=== PATIENT | female | born 1980 | race Caucasian/White ===

== ENCOUNTER 2023-01-17 07:23 | Emergency (ER) | payer OTHER, SELFPAY ==
--- NOTE | ~2023-01-17 | CT_ITS ---
EXAMINATION: CT abdomen pelvis w con DATE: 01/17/2023 08:43 INDICATION: Abdominal pain TECHNIQUE: Computed tomography (CT) of the abdomen and pelvis was performed with 100 mL Omnipaque-350 intravenous contrast. Automated exposure control and iterative reconstruction technique were employe d. The dose-length product was 1371.53 mGy-cm. COMPARISON: 04/22/2006 FINDINGS: Lung bases are clear. Heart size is normal. No pericardial or pleural effusion. Liver, gallbladder, s pleen, pancreas, bilateral adrenal glands are normal. 2.5 cm left renal cyst. 2 mm nonobstructing sto ne at a lower pole calyx of the right kidney. No ureteral stones or hydronephrosis. Small bowel and a ppendix are normal. Moderate diverticulosis along the descending colon with bowel wall thickening and prominent inflammatory stranding centered around a diverticulum at the junction of the descending an d transverse colon consistent with diverticulitis. No abscess or free intraperitoneal gas. Minimal ei ther reactive or physiologic free fluid in the deep pelvis. The uterus is not identified and has like ly been surgically resected. Bladder and right ovary are normal. 1.7 cm peripherally enhancing left o varian corpus luteum cyst. No pathologically enlarged abdominal or pelvic lymphadenopathy. Bones are unremarkable. IMPRESSION: 1. Radiographically uncomplicated diverticulitis at the junction of the descending and sigmoid colon. 2. 2 mm nonobstructing right renal stone. Reviewed, dictated and finalized at location A. RING PADS SUPERVISOR IMPRESSION: 1. Radiographically uncomplicated diverticulitis at the junction of the descend ing and sigmoid colon. 2. 2 mm nonobstructing right renal stone.
[2023-01-17 07:28] VITALS: BP 158/87; PULSE 94; RESP 16; TEMP 36.7; O2SAT 99
--- NOTE | 2023-01-17 07:34 | ED.ABDPAIN ---
HPI - Abdominal Pain General Chief Complaint: Abdominal Pain Stated Complaint: severe abdominal pain Time Seen by Provider: 01/17/23 07:31 Source: patient and family Limitations: no limitations History of Present Illness HPI narrative: Patient is 42 years old white female came to the emergency room by private car with her complaining of right upper and right lower quadrant pain started yesterday, dull aching, gets sharper with movement, better if she remains a still associated with nausea. She denies any fever, chills, vomiting, diarrhea, constipation, urinary symptoms, vaginal bleeding or discharge. History of hysterectomy and bladder lift and anxiety. Patient does not smoke, drinks occasionally uses marijuana occasionally and a history of kidney stone. Related Data Allergies Allergy/AdvReac Type Severity Reaction Status Date / Time No Known Allergies Allergy Verified 01/17/23 07:40 Review of Systems Review of Systems: All systems reviewed & are unremarkable except as noted in HPI and below PMFSH Past Medical History Medical History Anxiety Chronic low back pain with right-sided sciatica Edema, peripheral Elevated liver enzymes (03/09/22) ALT elevated at 43 with AST 24 on 03/09/2022. Encounter for wellness examination in adult Family history of premature coronary artery disease Fever Folliculitis Kidney stones kidney stone removal Morbid obesity with BMI of 40.0-44.9, adult Skin tag Surgical History Surgical History H/O LEEP H/O: hysterectomy (~2018) 08/25/19 RA TLH w/ rt ovarian cystectomy--menometrorrhagia, dysmenorrhea, urinary incontinence, rt ovarian cyst History of hysteroscopy 09/09/15 hscope d&c History of tonsillectomy Hx of ovarian cystectomy 09/09/15 Family History Family History Grandparent Diabetes mellitus, Onset Age: 81 maternal grandmother Cerebrovascular accident, Onset Age: 81 Family history of malignant neoplasm of breast in first degree relative Breast cancer maternal grandmother Mother Patient's mother is in good health Father Family history of cardiovascular disease, Onset Age: 58 Hypertension Diabetes mellitus Social History Social History Smoking status: Never smoker Alcohol intake: current Substance use: current Substance use type: marijuana Lack of Transportation: No Lack of Food: Never True Current Housing: I Have Housing Concerned About Future Housing: No Difficulty Paying Gas/Electric Bills: No Difficulty Paying for Meds: No Currently Unemployed: No Education: Bachelor's Degree Difficulty w/ Childcare or Family Care: No Exam Narrative: General appearance: Well-developed, well-nourished Skin: Normal color Head: Normocephalic, nontraumatic Eyes: Clear conjunctiva ENT: Oropharynx normal, ears normal, nose normal Neck: Supple, nontender Chest and respiratory: Airway patent, no respiratory distress, no accessory muscle use Heart: Regular rate/rhythm Abdomen: Soft, diffuse tenderness right abdomen and epigastric area, no guarding or rebound, no organomegaly, quiet bowel sounds Vascular: Normal peripheral pulses, normal capillary refill. Musculoskeletal: Normal range of motion, nontender back Neurologic: Alert and oriented ?3, INFORMATION SECURITY ARCHITECT is normal as tested, no gross motor deficit Course Vital Signs Vital signs: Vital Signs Temperature 36.7 C 01/17/23 07:28 Pulse Rate 94 01/17/23 07:28 Respiratory Rate 16 03/0
[2023-01-17] MEDS: SODIUM CHLORIDE 0.9% IV 1,000 ML 999 ML IV CONT (08:01)
[2023-01-17 08:03] LABS: Basophils Percent Auto 0.3 % (0.2-1.2); Eosinophils Absolute Auto 0.4 K/mm3 (0-0.3); Eosinophils Percent Auto 2.4 % (0-4.4); Hematocrit 41.3 % (37.0-47.0); Hemoglobin 14.2 g/dL (12.0-15.0); Immature Granulocyte Absolute 0.04 K/mm3 (0.00-0.031); Immature Granulocyte Percent A 0.3 % (0-0.5); Lymphocytes Absolute Auto 3.54 K/mm3 (0.9-3.2); Lymphocytes Percent Auto 23.9 % (18.3-44.2); Mean Corpuscular HGB Conc 34.4 g/dl (32-36); Mean Corpuscular Hemoglobin 30.7 pg (26-34); Mean Corpuscular Volume 89.4 fl (80-100); Mean Platelet Volume 10.9 fl (7.4-10.4); Monocytes Percent Auto 6.4 % (2.6-8.5); Neutrophils Absolute Auto 9.9 K/mm3 (1.3-6.7); Neutrophils Percent Auto 66.7 % (45.5-73.1); Platelet Count Result 334 k/mm3 (150-375); Red Blood Count 4.62 M/mm3 (4.2-5.4); Red Cell Distribution Width 13.4 % (11.5-14.5); White Blood Count 14.8 K/mm3 (4.5-10.0)
[2023-01-17] MEDS: ONDANSETRON INJ 4 MG/2 ML VIAL IV PUSH (08:03)
[2023-01-17] MEDS: HYDROmorphone HCL INJ (*CRX) 1 MG/ML SYR 0.5 MG IV PUSH (08:04)
[2023-01-17 08:28] LABS: Alanine Aminotransferase 56 U/L (6-35); Albumin Level 4.1 g/dL (3.5-5.1); Alkaline Phosphatase 55 U/L (38-126); Anion Gap 6 mmol/L (8-16); Aspartate Amino Transferase 26 U/L (14-36); Bilirubin,Total 0.7 mg/dL (0.2-1.3); Blood Urea Nitrogen 8 mg/dL (7-17); Calcium 8.3 mg/dL (8.4-10.2); Carbon Dioxide 25 mmol/L (22-30); Chloride 107 mmol/L (98-107); Estimated CRCL calculation 123 ml/min; Estimated Glomerular Filt Rate > 60; Glucose 115 mg/dL (65-110); Lipase 79 U/L (23-300); Potassium 3.8 mmol/L (3.4-5.0); Sodium 138 mmol/L (137-145)
[2023-01-17 08:34] VITALS: BP 143/86; PULSE 73; RESP 18; O2SAT 97
[2023-01-17 08:36] LABS: Appearance Urine Turbid (Clear); Bacteria Urine 4+ /hpf; Bilirubin Urine Negative (Negative); Blood Urine Negative (Negative); Color Urine Yellow (Yellow); Glucose Urine UA Negative (Negative); Ketones Urine Negative (Negative); Leukocyte Esterase Ur Negative LEU/UL (Negative); Mucus Urine Present /lpf; Nitrate Urine Negative (Negative); Protein Urine Negative (Negative); Specific Grav Ur 1.021 (1.001-1.035); Squamous Epithelial Cell Urine Many /hpf (Few); Urobilinogen Urine 0.2 mg/dL (<2.0)
[2023-01-17 08:41] LABS: Add Urine Microscopic? YES
== END 2023-01-17 11:01 | disposition home or self-care (01) ==
PROVIDERS: Emergency Provider Emergency Medicine; PCP Family Medicine
DX: K57.92 Diverticulitis of intestine, part unspecified, without perforation or abscess without bleeding (principal); E66.01 Morbid (severe) obesity due to excess calories; Z68.41 Body mass index [BMI] 40.0-44.9, adult
CPT/HCPCS: 36415; 74177; 80053; 81001; 83690; 85025; 87086; 87088; 96361; 96374; 96375; 99284; J1170; J2405; J7030; Q9967

== ENCOUNTER 2023-01-23 13:02 | Emergency (ER) | payer OTHER, SELFPAY ==
--- NOTE | ~2023-01-23 | CT_ITS ---
EXAMINATION: CT abdomen pelvis w con DATE: 01/23/2023 16:09 INDICATION: abdominal pain TECHNIQUE: Computed tomography (CT) of the abdomen and pelvis was performed with 100 mL Omnipaque-350 intravenous contrast. Automated exposure control and iterative reconstruction technique were employe d. The dose-length product was 1278.23 mGy-cm. COMPARISON: 01/17/2023. FINDINGS: Lower thorax: Unremarkable Liver: Normal. Biliary/Gallbladder: Gallbladder is normal. No bile duct dilation. Pancreas: No mass or duct dilation. Spleen: Normal. Adrenals:No mass. Kidneys: Simple left midpole cyst. Bilateral cortical hypodensities, too small to characterize but al so likely represent cysts. Punctate right midpole nonobstructing calculi. GI tract: Mild distal esophageal and antral wall edema. Short segment proximal sigmoid wall edema, wi th moderate surrounding inflammatory changes. The previously described inflamed diverticulum is no lo nger visualized. Slightly decreased surrounding fat stranding, with slightly increased thickening of fat fascicle and adjacent peritoneal reflections. No surrounding fluid or gas. No small or large jaron l dilation. Normal appendix. Mesentery/Peritoneum: No ascites, mass, or free air. Retroperitoneum: No mass. Pelvis: Unremarkable urinary bladder. Surgically absent uterus. Normal ovaries. Soft Tissues: Soft tissues and body wall unremarkable. Bones: No acute osseous finding. IMPRESSION: Mild esophagitis/gastritis. Uncomplicated sigmoid diverticulitis, similar to slightly improved when c ompared to the prior study of 01/17/2023. Reviewed, dictated and finalized at location K. IMPRESSION: Mild esophagitis/gastritis. Uncomplicated sigmoid diverticulitis, similar to sl ightly improved when compared to the prior study of 01/17/2023.
[2023-01-23 13:12] VITALS: BP 157/89; PULSE 95; RESP 14; TEMP 37.1; O2SAT 97
[2023-01-23 14:16] LABS: Basophils Percent Auto 0.3 % (0.2-1.2); Eosinophils Absolute Auto 0.1 K/mm3 (0-0.3); Eosinophils Percent Auto 0.6 % (0-4.4); Hematocrit 43.1 % (37.0-47.0); Hemoglobin 14.5 g/dL (12.0-15.0); Immature Granulocyte Absolute 0.04 K/mm3 (0.00-0.031); Immature Granulocyte Percent A 0.3 % (0-0.5); Lymphocytes Absolute Auto 2.72 K/mm3 (0.9-3.2); Lymphocytes Percent Auto 17.9 % (18.3-44.2); Mean Corpuscular HGB Conc 33.6 g/dl (32-36); Mean Corpuscular Hemoglobin 31.1 pg (26-34); Mean Corpuscular Volume 92.5 fl (80-100); Mean Platelet Volume 9.8 fl (7.4-10.4); Monocytes Absolute Auto 1.1 K/mm3 (0.1-0.6); Monocytes Percent Auto 7.2 % (2.6-8.5); Neutrophils Absolute Auto 11.2 K/mm3 (1.3-6.7); Neutrophils Percent Auto 73.7 % (45.5-73.1); Platelet Count Result 389 k/mm3 (150-375); Red Blood Count 4.66 M/mm3 (4.2-5.4); Red Cell Distribution Width 13.1 % (11.5-14.5); White Blood Count 15.2 K/mm3 (4.5-10.0)
[2023-01-23 14:34] LABS: Alanine Aminotransferase 35 U/L (6-35); Albumin Level 4.5 g/dL (3.5-5.1); Alkaline Phosphatase 64 U/L (38-126); Anion Gap 8 mmol/L (8-16); Appearance Urine Clear (Clear); Aspartate Amino Transferase 21 U/L (14-36); Bacteria Urine None Seen /hpf; Bilirubin Urine Negative (Negative); Bilirubin,Total 0.9 mg/dL (0.2-1.3); Blood Urea Nitrogen 8 mg/dL (7-17); Blood Urine Negative (Negative); Calcium 8.8 mg/dL (8.4-10.2); Carbon Dioxide 25 mmol/L (22-30); Chloride 104 mmol/L (98-107); Color Urine Yellow (Yellow); Estimated CRCL calculation 107 ml/min; Estimated Glomerular Filt Rate > 60; Glucose 97 mg/dL (65-110); Glucose Urine UA Negative (Negative); Ketones Urine 1+ mg/dL (Negative); Leukocyte Esterase Ur Negative LEU/UL (Negative); Lipase 37 U/L (23-300); Need Manual Microscopic Reviewed; Nitrate Urine Negative (Negative); Non Pathogenic Casts 0-2; Potassium 3.9 mmol/L (3.4-5.0); Protein Urine Trace mg/dL (Negative); Sodium 137 mmol/L (137-145); Specific Grav Ur 1.023 (1.001-1.035); Squamous Epithelial Cell Urine Few /hpf (Few); Urobilinogen Urine 0.2 mg/dL (<2.0); WBC Urine 0-5 /hpf; pH Urine 5.5 (5.0-9.0)
[2023-01-23 14:38] LABS: Add Urine Microscopic? YES
[2023-01-23 15:26] VITALS: BP 142/91; PULSE 91; RESP 14; O2SAT 98
--- NOTE | 2023-01-23 17:03 | ED.GENADULT ---
HPI - General Adult General Chief complaint: Abdominal Pain Stated complaint: Abdominal pain Time Seen by Provider: 01/23/23 15:27 History of Present Illness HPI narrative: 42-year-old female presented emerged department for evaluation of persistent pain after a recent case of diverticulitis. Patient was started on Flagyl and Levaquin approximately 7 days ago. Patient was unable to tolerate the Flagyl. Patient took 3 days of Flagyl and stop the Flagyl and continue the Levaquin. Patient had follow-up with her primary care physician and was referred to the emergency department for evaluation. Patient states initially her pain was on the right but now she has left lower quadrant pain. Patient states since stopping the Flagyl her nausea vomiting has improved. Patient denies any fevers. Patient states she was having some symptoms of increased urinary frequency but denies any dysuria. Related Data Allergies Allergy/AdvReac Type Severity Reaction Status Date / Time metronidazole AdvReac Severe Nausea and Verified 01/22/23 12:56 Vomiting Review of Systems Review of Systems: All systems reviewed & are unremarkable except as noted in HPI and below PMFSH Past Medical History Medical History (Updated 01/30/23 @ 15:42 by Kevin Robledo MD) Anxiety BMI 39.0-39.9,adult Chronic low back pain with right-sided sciatica Diverticulitis large intestine (01/16/23) Edema, peripheral Elevated liver enzymes (03/09/22) ALT elevated at 43 with AST 24 on 03/09/2022. Encounter for wellness examination in adult Family history of premature coronary artery disease Fever Folliculitis Gastritis (~01/23/23) gastritis noted on CT in the ER 01/23/2023. Kidney stones kidney stone removal Morbid obesity with BMI of 40.0-44.9, adult Obesity (BMI 30-39.9) Skin tag Surgical History Surgical History H/O LEEP H/O: hysterectomy (~2018) 08/25/19 RA TORRES w/ rt ovarian cystectomy--menometrorrhagia, dysmenorrhea, urinary incontinence, rt ovarian cyst History of hysteroscopy 09/09/15 hscope d&c History of tonsillectomy Hx of ovarian cystectomy 09/09/15 Family History Family History Grandparent Diabetes mellitus, Onset Age: 81 maternal grandmother Cerebrovascular accident, Onset Age: 81 Family history of malignant neoplasm of breast in first degree relative Breast cancer maternal grandmother Mother Patient's mother is in good health Father Family history of cardiovascular disease, Onset Age: 58 Hypertension Diabetes mellitus Social History Social History Smoking status: Never smoker Alcohol intake: current Substance use: current Substance use type: marijuana Lack of Transportation: No Lack of Food: Never True Current Housing: I Have Housing Concerned About Future Housing: No Difficulty Paying Gas/Electric Bills: No Difficulty Paying for Meds: No Currently Unemployed: No Education: Bachelor's Degree Difficulty w/ Childcare or Family Care: No Exam Narrative: APPEARANCE: Well appearing, no pain, no distress, well-nourished. HEAD: normocephalic, atraumatic. EYES: PERRLA/EOMI, conjunctivae clear. NOSE: Normal no drainage NECK: Supple. No adenopathy, no masses. RESPIRATORY: Airway patent, respirations nonlabored. Clear to auscultation bilaterally, no rales, rhonchi, wheezing. CARDIOVASCULAR: Regular rate and rhythm without murmurs rubs or gallops. ABDOMINAL: Soft, nondistended, normal bowel sounds lower quadrant tenderness to palpation MUSCULOSKELETAL: Moves all extremities. Strength/ROM intact, No edema, No calf tenderness. NEURO: Alert. Cranial nerves II through XII intact. Grossly intact SKIN: Warm, dry. Normal Color Course Course Emergency Course: 42-year-old female with partial treatment of diverticulitis. CT scan
[2023-01-23] MEDS: PANTOPRAZOLE SODIUM IV 40 MG VIAL IV PUSH (17:18)
[2023-01-23] MEDS: SODIUM CHLORIDE 0.9% IV 1,000 ML 999 ML IV CONT (17:19)
[2023-01-23] MEDS: PIPERACILLN/TAZ 3.375GM/NS50ML 3.375 GM/50 ML BAG IVPB (17:22)
[2023-01-23] MEDS: HYDROmorphone HCL INJ (*CRX) 1 MG/ML SYR 0.5 MG IV PUSH (17:22)
== END 2023-01-23 18:46 | disposition home or self-care (01) ==
PROVIDERS: Emergency Provider Emergency Medicine; PCP Family Medicine
DX: K57.32 Diverticulitis of large intestine without perforation or abscess without bleeding (principal); Z87.442 Personal history of urinary calculi; E66.01 Morbid (severe) obesity due to excess calories; Z68.41 Body mass index [BMI] 40.0-44.9, adult; Z90.710 Acquired absence of both cervix and uterus
CPT/HCPCS: 36415; 74177; 80053; 81001; 83690; 85025; 96365; 96375; 99284; C9113; J1170; J2543; J7030; Q9967

== ENCOUNTER 2023-03-28 07:23 | Emergency (ER) | payer OTHER, SELFPAY ==
--- NOTE | ~2023-03-28 | CT_ITS ---
EXAMINATION: CT abdomen pelvis w con DATE: 03/28/2023 08:18 INDICATION: Left lower quadrant pain. History of diverticulitis. TECHNIQUE: Computed tomography (CT) of the abdomen and pelvis was performed with 100 cc Omnipaque 350 intravenous contrast. The dose-length product was 1274.89 mGy-cm. Automated exposure control and ite rative reconstruction technique were employed. COMPARISON: CT dated 01/23/2023 FINDINGS: Lung bases are unremarkable. No endobronchial lesions. Heart size normal. No significant pl eural or pericardial effusion. Fatty infiltration of the liver. The spleen, pancreas, adrenal glands there are unremarkable. There is a punctate nonobstructing right renal stone. There is an exophytic l eft renal cyst. There is free fluid in the left paracolic gutter. There is acute diverticulitis of th e distal descending colon. The uterus is surgically absent. No lymphadenopathy. Gallbladder is presen t. No free air. There is osteoarthritis of the hips. IMPRESSION: 1. Acute diverticulitis of the distal descending colon without evidence for perforation or abscess. Reviewed, dictated and finalized at location B. IMPRESSION: 1. Acute diverticulitis of the distal descending colon without evidence for per foration or abscess.
[2023-03-28 07:28] VITALS: BP 149/89; PULSE 100; RESP 16; TEMP 36.3; O2SAT 100
--- NOTE | 2023-03-28 07:41 | ED.ABDPAIN ---
HPI - Abdominal Pain General Chief Complaint: Abdominal Pain Stated Complaint: diverticulitis flare Time Seen by Provider: 03/28/23 07:34 History of Present Illness HPI narrative: Pt presents with LLQ abdominal pain since yesterday getting worse. Pt says it feels like diverticulitis flare up which she has had once. Pt denies urinary symptoms or flank pain. Pt denies bloody stools or diarrhea or vomiting. Related Data Allergies Allergy/AdvReac Type Severity Reaction Status Date / Time metronidazole AdvReac Severe Nausea and Verified 03/28/23 07:34 Vomiting Review of Systems Review of Systems: All systems reviewed & are unremarkable except as noted in HPI and below PMFSH Past Medical History Medical History (Updated 03/28/23 @ 08:34 by Esequiel Anderson III, DO) Anxiety BMI 39.0-39.9,adult Chronic low back pain with right-sided sciatica Diverticulitis large intestine (01/16/23) Edema, peripheral Elevated liver enzymes (03/09/22) ALT elevated at 43 with AST 24 on 03/09/2022. Encounter for wellness examination in adult Family history of premature coronary artery disease Fever Folliculitis Gastritis (~01/23/23) gastritis noted on CT in the ER 01/23/2023. Kidney stones kidney stone removal Morbid obesity with BMI of 40.0-44.9, adult Obesity (BMI 30-39.9) Skin tag Surgical History Surgical History H/O LEEP H/O: hysterectomy (~2018) 08/25/19 RA TLH w/ rt ovarian cystectomy--menometrorrhagia, dysmenorrhea, urinary incontinence, rt ovarian cyst History of hysteroscopy 09/09/15 hscope d&c History of tonsillectomy Hx of ovarian cystectomy 09/09/15 Family History Family History Grandparent Diabetes mellitus, Onset Age: 81 maternal grandmother Cerebrovascular accident, Onset Age: 81 Family history of malignant neoplasm of breast in first degree relative Breast cancer maternal grandmother Mother Patient's mother is in good health Father Family history of cardiovascular disease, Onset Age: 58 Hypertension Diabetes mellitus Social History Social History Smoking status: Never smoker Alcohol intake: current Substance use: current Substance use type: marijuana Lack of Transportation: No Lack of Food: Never True Current Housing: I Have Housing Concerned About Future Housing: No Difficulty Paying Gas/Electric Bills: No Difficulty Paying for Meds: No Currently Unemployed: No Education: Bachelor's Degree Difficulty w/ Childcare or Family Care: No Exam Const: General: healthy appearing Nutritional Appearance: well nourished Orientation/consciousness: patient oriented x3 Limitations: no limitations Neck: Neck: normal visual inspection Chest: Chest palpation & inspection: normal inspection of the chest Resp: Effort & Inspection: normal respiratory effort Auscultation: clear to auscultation bilaterally Cardio: Rate: regular rate GI: GI Palp: Yes Soft to palpation and Yes Tenderness to palpation present (GI) (llq with guarding) Auscultation: normal bowel sounds Back/Spine/Pelvis: Back: no CVA tenderness Skin: General skin exam: normal color Rashes: no rashes Wounds: no wounds Neuro: General: patient oriented x3, moves all extremities and no focal motor deficits Speech: normal speech Extrem: General: normal to inspection and no clubbing, cyanosis or edema Psych: Mental Status: mental status grossly normal Affect: normal affect Attitude: cooperative Course Vital Signs Vital signs: Vital Signs Temperature 97.3 F L 03/28/23 07:28 Pulse Rate 100 03/28/23 07:28 Respiratory Rate 16 03/28/23 07:28 Blood Pressure 149/89 H 03/28/23 07:28 Pulse Oximetry 100 03/28/23 07:28 Oxygen Delivery Room Air 03/28/23 07:28 Temperature 97.3 F L 03/28/23 07:28 Pulse
[2023-03-28] MEDS: SODIUM CHLORIDE 0.9% IV 1,000 ML 999 ML IV CONT (07:49)
[2023-03-28] MEDS: MORPHINE SULFATE (*CRX) 4 MG/ML INJ IV PUSH (07:50)
[2023-03-28] MEDS: ONDANSETRON INJ 4 MG/2 ML VIAL IV PUSH (07:50)
[2023-03-28 07:54] LABS: Basophils Percent Auto 0.2 % (0.2-1.2); Eosinophils Absolute Auto 0.2 K/mm3 (0-0.3); Eosinophils Percent Auto 1.6 % (0-4.4); Hematocrit 43.4 % (37.0-47.0); Hemoglobin 14.4 g/dL (12.0-15.0); Immature Granulocyte Absolute 0.04 K/mm3 (0.00-0.031); Immature Granulocyte Percent A 0.3 % (0-0.5); Lymphocytes Absolute Auto 3.36 K/mm3 (0.9-3.2); Lymphocytes Percent Auto 26.2 % (18.3-44.2); Mean Corpuscular HGB Conc 33.2 g/dl (32-36); Mean Corpuscular Hemoglobin 30.1 pg (26-34); Mean Corpuscular Volume 90.8 fl (80-100); Monocytes Absolute Auto 0.9 K/mm3 (0.1-0.6); Monocytes Percent Auto 6.7 % (2.6-8.5); Neutrophils Absolute Auto 8.3 K/mm3 (1.3-6.7); Platelet Count Result 347 k/mm3 (150-375); Red Blood Count 4.78 M/mm3 (4.2-5.4); Red Cell Distribution Width 13.6 % (11.5-14.5); White Blood Count 12.8 K/mm3 (4.5-10.0)
[2023-03-28 08:04] LABS: Alanine Aminotransferase 38 U/L (6-35); Albumin Level 4.3 g/dL (3.5-5.1); Alkaline Phosphatase 56 U/L (38-126); Anion Gap 7 mmol/L (8-16); Aspartate Amino Transferase 24 U/L (14-36); Bilirubin,Total 0.7 mg/dL (0.2-1.3); Blood Urea Nitrogen 11 mg/dL (7-17); Calcium 8.3 mg/dL (8.4-10.2); Carbon Dioxide 27 mmol/L (22-30); Chloride 104 mmol/L (98-107); Estimated CRCL calculation 117 ml/min; Estimated Glomerular Filt Rate > 60; Glucose 116 mg/dL (65-110); Lipase 60 U/L (23-300); Potassium 3.7 mmol/L (3.4-5.0); Sodium 138 mmol/L (137-145)
[2023-03-28 08:30] LABS: Partial Thromboplastin Time 29.6 SECONDS (22.3-36.8); Prothrombin Time 13.6 Seconds (11.1-14.7)
[2023-03-28 08:30] LABS: Add Urine Microscopic? YES; Appearance Urine Cloudy (Clear); Bacteria Urine 4+ /hpf; Bilirubin Urine Negative (Negative); Blood Urine Negative (Negative); Color Urine Yellow (Yellow); Glucose Urine UA Negative (Negative); Ketones Urine Negative (Negative); Leukocyte Esterase Ur Negative LEU/UL (Negative); Need Manual Microscopic Reviewed; Nitrate Urine Negative (Negative); Non Pathogenic Casts 0-2; Protein Urine Negative (Negative); Squamous Epithelial Cell Urine Many /hpf (Few); WBC Urine 0-5 /hpf; pH Urine 5.5 (5.0-9.0)
== END 2023-03-28 09:29 | disposition home or self-care (01) ==
PROVIDERS: Emergency Provider Emergency Medicine; PCP Family Medicine
DX: K57.92 Diverticulitis of intestine, part unspecified, without perforation or abscess without bleeding (principal)
CPT/HCPCS: 36415; 74177; 80053; 81001; 83690; 85025; 85610; 85730; 96361; 96374; 96375; 99284; J2270; J2405; J7030; Q9967

== ENCOUNTER 2023-12-20 08:04 | Emergency (ER) | payer OTHER, SELFPAY ==
--- NOTE | ~2023-12-20 | CT_ITS ---
CT of the Abdomen and Pelvis: Indication: Abdominal pain Technique: 2.5 mm axial scans were obtained through the abdomen and pelvis following intravenous adm inistration of 100 cc of Omnipaque 350. Dose reduction technique was used on this scan by utilizing a utomated exposure control and iterative reconstruction technique. The dose-length product (DLP) was 1 254.32 mGy-cm. COMPARISON: 03/28/2023 Findings: Scans through the lung bases are unremarkable. The liver, spleen, pancreas, gallbladder, adrenals and kidneys are within normal limits. No evidence of aortic aneurysm. No lymphadenopathy. There is wall thickening and pericolonic inflammatory change at the proximal sigmoid colon, most comp atible with acute diverticulitis. No abscess or free air. Images through the pelvis were performed. Urinary bladder unremarkable.. No pelvic mass seen. Impression: Acute sigmoid diverticulitis. No abscess or free air. Reviewed, dictated and finalized at [facility]. RIBUTION ACCOUNTING CLERK Impression: Acute sigmoid diverticulitis. No abscess or free air.
[2023-12-20 08:10] VITALS: BP 151/76; PULSE 86; RESP 16; TEMP 36.6; O2SAT 99
[2023-12-20 08:44] LABS: Appearance Urine Clear (Clear); Bilirubin Urine Negative (Negative); Blood Urine Negative (Negative); Color Urine Yellow (Yellow); Glucose Urine UA Negative (Negative); Ketones Urine Negative (Negative); Leukocyte Esterase Ur Negative LEU/UL (Negative); Nitrate Urine Negative (Negative); Protein Urine Negative (Negative); Specific Grav Ur 1.013 (1.001-1.035); Urobilinogen Urine 0.2 mg/dL (<2.0)
[2023-12-20 08:46] LABS: Add Urine Microscopic? NO
[2023-12-20 09:02] LABS: Basophils Percent Auto 0.2 % (0.2-1.2); Eosinophils Absolute Auto 0.2 K/mm3 (0-0.3); Eosinophils Percent Auto 2.3 % (0-4.4); Hematocrit 44.1 % (37.0-47.0); Hemoglobin 14.4 g/dL (12.0-15.0); Immature Granulocyte Absolute 0.02 K/mm3 (0.00-0.031); Immature Granulocyte Percent A 0.2 % (0-0.5); Lymphocytes Absolute Auto 2.55 K/mm3 (0.9-3.2); Lymphocytes Percent Auto 27.3 % (18.3-44.2); Mean Corpuscular HGB Conc 32.7 g/dl (32-36); Mean Corpuscular Hemoglobin 30.1 pg (26-34); Mean Corpuscular Volume 92.1 fl (80-100); Mean Platelet Volume 10.2 fl (7.4-10.4); Monocytes Absolute Auto 0.8 K/mm3 (0.1-0.6); Monocytes Percent Auto 8.3 % (2.6-8.5); Neutrophils Absolute Auto 5.8 K/mm3 (1.3-6.7); Neutrophils Percent Auto 61.7 % (45.5-73.1); Platelet Count Result 323 k/mm3 (150-375); Red Blood Count 4.79 M/mm3 (4.2-5.4); Red Cell Distribution Width 13.6 % (11.5-14.5); White Blood Count 9.3 K/mm3 (4.5-10.0)
[2023-12-20 09:11] LABS: Alanine Aminotransferase 26 U/L (6-35); Albumin Level 3.9 g/dL (3.5-5.1); Alkaline Phosphatase 54 U/L (38-126); Anion Gap 4 mmol/L (8-16); Aspartate Amino Transferase 20 U/L (14-36); Bilirubin,Total 0.8 mg/dL (0.2-1.3); Blood Urea Nitrogen 9 mg/dL (7-17); Carbon Dioxide 26 mmol/L (22-30); Chloride 108 mmol/L (98-107); Estimated CRCL calculation 101 ml/min; Estimated Glomerular Filt Rate > 60; Glucose 115 mg/dL (65-110); Lipase 356 U/L (23-300); Potassium 4.2 mmol/L (3.4-5.0); Sodium 138 mmol/L (137-145)
--- NOTE | 2023-12-20 09:30 | ED.GENADULT ---
HPI - General Adult General Chief complaint: Abdominal Pain Stated complaint: diverticulitis? Time Seen by Provider: 12/20/23 09:01 Source: patient Mode of arrival: ambulatory Limitations: no limitations History of Present Illness HPI narrative: this is a 43 year old female with PMH of diverticulitis, gastritis, anxiety who presents to the ED with chief complaint of left lower quadrant pain beginning yesterday morning. Reports the pain has been constant but seems to be worse with certain movements. located primarily in the left lower quadrant and radiates somewhat across the lower abdomen. endorses some loose stools but not significant diarrhea. Endorses nausea but no vomiting. Denies associated fevers, chills, urinary symptoms, GI bleeding symptoms, chest pain. Reports past surgical history of laparoscopic hysterectomy but still has 1 ovary. Also reports history of bladder sling Related Data Allergies Allergy/AdvReac Type Severity Reaction Status Date / Time metronidazole AdvReac Severe Nausea and Verified 12/20/23 14:29 Vomiting Review of Systems Review of Systems: All systems as dictated in [facility] Past Medical History Medical History Anxiety BMI 38.0-38.9,adult BMI 39.0-39.9,adult Chronic low back pain with right-sided sciatica Diverticulitis large intestine (01/16/23) Acute diverticulitis distal descending colon 03/28/2023. Edema, peripheral Elevated liver enzymes (03/09/22) ALT elevated at 43 with AST 24 on 03/09/2022. Encounter for wellness examination in adult Family history of premature coronary artery disease Fever Folliculitis Gastritis (~01/23/23) gastritis noted on CT in the ER 01/23/2023. Kidney stones kidney stone removal Morbid obesity with BMI of 40.0-44.9, adult Motion sickness Obesity (BMI 30-39.9) Screening mammogram, encounter for Skin tag Surgical History Surgical History H/O LEEP H/O: hysterectomy (~2018) 08/25/19 RA TLH w/ rt ovarian cystectomy--menometrorrhagia, dysmenorrhea, urinary incontinence, rt ovarian cyst History of hysteroscopy 09/09/15 hscope d&c History of tonsillectomy Hx of ovarian cystectomy 09/09/15 Family History Family History Grandparent Diabetes mellitus, Onset Age: 81 maternal grandmother Cerebrovascular accident, Onset Age: 81 Family history of malignant neoplasm of breast in first degree relative Breast cancer maternal grandmother Mother Patient's mother is in good health Father Family history of cardiovascular disease, Onset Age: 58 Hypertension Diabetes mellitus Social History Social History Smoking status: Never smoker Second hand tobacco smoke exposure: No Alcohol intake: current Alcohol use details: social 4 per month Substance use: current Substance use type: marijuana Other substance usage details: 2-3 times a week Lack of Transportation: No Lack of Food: Never True Current Housing: I Have Housing Concerned About Future Housing: No Difficulty Paying Gas/Electric Bills: No Difficulty Paying for Meds: No Currently Unemployed: No Education: Bachelor's Degree Difficulty w/ Childcare or Family Care: No Living arrangements: other Additional living arrangements comments: Occupation/Education: occupation Additional occupation/education comments: IT Gender identity (if verbalized by the patient): Female Sexual Orientation (if Verbalized by the Patient): Straight or Heterosexual Exam Narrative: GENERAL: Well-appearing, well-nourished, and in no acute distress. HEAD: Normocephalic, atraumatic. EYES: PERRLA and EOMI. ENT: Nares clear, no rhinorrhea or epistaxis. Mucous membranes moist. Oropharynx without tonsillar
[2023-12-20] MEDS: HYDROmorphone HCL INJ (*CRX) 1 MG/ML SYR 0.5 MG IV PUSH (10:08)
[2023-12-20] MEDS: ONDANSETRON INJ 4 MG/2 ML VIAL IV PUSH (10:08)
[2023-12-20 11:37] VITALS: BP 159/98; PULSE 81; RESP 17; O2SAT 98
== END 2023-12-20 11:38 | disposition home or self-care (01) ==
PROVIDERS: Emergency Medicine; Emergency Provider Physician Assistant; PCP Family Medicine
DX: K57.32 Diverticulitis of large intestine without perforation or abscess without bleeding (principal); E66.01 Morbid (severe) obesity due to excess calories; Z68.38 Body mass index [BMI] 38.0-38.9, adult; Z87.442 Personal history of urinary calculi; Z90.710 Acquired absence of both cervix and uterus
CPT/HCPCS: 36415; 74177; 80053; 81003; 81025; 83690; 85025; 96365; 96375; 99284; J0696; J1170; J2405; Q9967

== ENCOUNTER 2024-03-10 06:11 | Day surgery (SDC) | payer OTHER, SELFPAY ==
[2023-12-28 09:30] VITALS: BMI 37.7
[2024-03-10 06:49] VITALS: BMI 38.0
[2024-03-10 06:51] VITALS: BP 147/84; PULSE 67; RESP 18; TEMP 36.6; O2SAT 97
--- NOTE | 2024-03-10 07:20 | WPDANESEPPF ---
Anes - Initial Pre Proc Eval Procedure: Operation Date: 03/10/24 08:00 Proposed Procedures p Diagnostic Colonoscopy - Twin Lagos DO Date/Time: 03/10/24 07:20 Surgeon: Twin Lagos DO Pre Op Diagnosis: Diverticulitis Patient Data Age: 43 Gender: F Height: 1.63 m Weight: 100.5 kg Last Vital Signs Temp 36.6 C 03/10/24 06:51 Pulse 67 03/10/24 06:51 Resp 18 03/10/24 06:51 BP 147/84 H 03/10/24 06:51 Pulse Ox 97 03/10/24 06:51 O2 Del Method Room Air 03/10/24 06:51 Allergies Allergy/AdvReac Type Severity Reaction Status Date / Time metronidazole AdvReac Severe Nausea and Verified 03/10/24 06:41 Vomiting Home Medications Medication Instructions Recorded Confirmed Type alprazolam 0.25 mg tablet (Xanax) 0.25 mg PO TID PRN anxiety #90 tabs 09/25/23 03/10/24 Rx scopolamine base 1 mg over 3 days 1 patch transdermal Q3D PRN motion 02/08/24 03/10/24 Rx transdermal patch sickness #4 ea Vitamin D3 1 tab-cap PO DIRECTED 02/21/24 03/10/24 History vitamin B complex 1 tablet PO DAILY 02/21/24 03/10/24 History vitamin E 1 tab-cap PO DIRECTED 02/21/24 03/10/24 History Patient hx anesthesia problems: none Family hx anesthesia problems: none Results Review: All pre-operative results and documents have been reviewed as part of the pre-operative evaluation. [facility] Past Medical History Medical History Anxiety BMI 38.0-38.9,adult BMI 39.0-39.9,adult Chronic low back pain with right-sided sciatica Diverticulitis large intestine (01/16/23) Acute diverticulitis distal descending colon 03/28/2023. Edema, peripheral Elevated liver enzymes (03/09/22) ALT elevated at 43 with AST 24 on 03/09/2022. Encounter for wellness examination in adult Family history of premature coronary artery disease Fever Folliculitis Gastritis (~01/23/23) gastritis noted on CT in the ER 01/23/2023. Kidney stones kidney stone removal Morbid obesity with BMI of 40.0-44.9, adult Motion sickness Obesity (BMI 30-39.9) Screening mammogram, encounter for Skin tag Surgical History Surgical History H/O LEEP H/O: hysterectomy (~2018) 08/25/19 RA TLH w/ rt ovarian cystectomy--menometrorrhagia, dysmenorrhea, urinary incontinence, rt ovarian cyst History of hysteroscopy 09/09/15 hscope d&c History of tonsillectomy Hx of ovarian cystectomy 09/09/15 Family History Family History Grandparent Diabetes mellitus, Onset Age: 81 maternal grandmother Cerebrovascular accident, Onset Age: 81 Family history of malignant neoplasm of breast in first degree relative Breast cancer maternal grandmother Mother Patient's mother is in good health Father Family history of cardiovascular disease, Onset Age: 58 Hypertension Diabetes mellitus Social History Social History Smoking status: Former smoker Second hand tobacco smoke exposure: No Alcohol intake: current Alcohol use details: couple per month Substance use: current Substance use type: does not use Other substance usage details: 2-3 times a week Lack of Transportation: No Lack of Food: Never True Current Housing: I Have Housing Concerned About Future Housing: No Difficulty Paying Gas/Electric Bills: No Difficulty Paying for Meds: No Currently Unemployed: No Education: Bachelor's Degree Difficulty w/ Childcare or Family Care: No Living arrangements: with family Additional living arrangements comments: -- Occupation/Education: occupation Additional occupation/education comments: IT Gender identity (if verbalized by the patient): Female Sexual Orientation (if Verbalized by the Patient): Straight or Heterosexual Anes - Eval Final PreProcedure Day of Proced
[2024-03-10] MEDS: LACTATED RINGERS 1,000 ML 150 ML IV CONT (07:37)
--- NOTE | 2024-03-10 08:10 | PM.IMHP ---
H&P: HPI History of Present Illness Date/Time: 03/10/24 08:10 Chief Complaint: Diverticulitis Narrative: this is a 43-year-old woman who presents for colonoscopy. She has never had a colonoscopy before. She has had multiple previous episodes of diverticulitis. She did his family history of colon cancer and denies any hematochezia or melena. Review of Systems Review of Systems: All systems reviewed & are unremarkable except as noted in HPI and below Constitutional: Constitutional: Denies chills, Denies fever(s), Denies headache(s) and Denies weight loss Eyes: Eyes: Denies change in vision ENT: Denies dizziness, Denies headache(s), Denies neck mass and Denies throat swelling Cardiovascular: Cardiovascular: Denies chest pain, Denies lightheadedness and Denies dyspnea Respiratory: Respiratory: Denies cough, Denies dyspnea and Denies wheezing Gastrointestinal: Gastrointestinal: Denies abdominal pain, Denies change in bowel habits, Denies nausea and Denies vomiting Genitourinary: Genitourinary: Denies hematuria and Denies dysuria Musculoskeletal: Musculoskeletal: Reports as per HPI Integumentary/Breasts: Skin/Breast: Reports as per HPI Neurologic: Denies dizziness and Denies headache(s) Allergic/Immunologic: Allergic/Immunologic: Denies throat swelling and Denies wheezing [facility] Past Medical History Medical History Anxiety BMI 38.0-38.9,adult BMI 39.0-39.9,adult Chronic low back pain with right-sided sciatica Diverticulitis large intestine (01/16/23) Acute diverticulitis distal descending colon 03/28/2023. Edema, peripheral Elevated liver enzymes (03/09/22) ALT elevated at 43 with AST 24 on 03/09/2022. Encounter for wellness examination in adult Family history of premature coronary artery disease Fever Folliculitis Gastritis (~01/23/23) gastritis noted on CT in the ER 01/23/2023. Kidney stones kidney stone removal Morbid obesity with BMI of 40.0-44.9, adult Motion sickness Obesity (BMI 30-39.9) Screening mammogram, encounter for Skin tag Surgical History Surgical History H/O LEEP H/O: hysterectomy (~2019) 08/25/19 RA TL w/ rt ovarian cystectomy--menometrorrhagia, dysmenorrhea, urinary incontinence, rt ovarian cyst History of hysteroscopy 09/09/15 hscope d&c History of tonsillectomy Hx of ovarian cystectomy 09/09/15 Family History Family History (Reviewed 12/28/23 @ 08:50 by Renae Galvan [facility]) Grandparent Diabetes mellitus, Onset Age: 81 maternal grandmother Cerebrovascular accident, Onset Age: 81 Family history of malignant neoplasm of breast in first degree relative Breast cancer maternal grandmother Mother Patient's mother is in good health Father Family history of cardiovascular disease, Onset Age: 58 Hypertension Diabetes mellitus Social History Social History (Updated 03/10/24 @ 07:37 by Reinier Miguel, ) Smoking status: Former smoker Second hand tobacco smoke exposure: No Alcohol intake: current Alcohol use details: couple per month Substance use: current Substance use type: marijuana Other substance usage details: 2-3 times a week Lack of Transportation: No Lack of Food: Never True Current Housing: I Have Housing Concerned About Future Housing: No Difficulty Paying Gas/Electric Bills: No Difficulty Paying for Meds: No Currently Unemployed: No Education: Bachelor's Degree Difficulty w/ Childcare or Family Care: No Living arrangements: with family Additional living arrangements comments: -- Occupation/Education: occupation Additional occupation/education comments: IT Gender identity (if verbalized by the patient): Female Sexual Orientation (if Verbalized by the Patient): Straight or Heterosexual Meds Home Medications and Allergies Home Medications Medication Instructi
[2024-03-10 08:45] VITALS: BP 116/59; PULSE 65; RESP 20; O2SAT 96
[2024-03-10 08:55] VITALS: BP 110/93; PULSE 67; RESP 15; O2SAT 98
[2024-03-10 09:05] VITALS: BP 122/70; PULSE 59; RESP 16; O2SAT 100
--- NOTE | 2024-03-10 10:36 | WPDANESPN ---
Anes - Prog Note Post-Op Date/Time: 03/10/24 10:36 Cardiovascular status: normal Respiratory status: normal Airway patency: baseline Mental status: baseline Post-Op hydration status: normal Vital Signs: Last Vital Signs Temp 36.6 C 03/10/24 06:51 Pulse 59 L 03/10/24 09:05 Resp 16 03/10/24 09:05 BP 122/70 03/10/24 09:05 Pulse Ox 100 03/10/24 09:05 O2 Del Method Room Air 03/10/24 09:05 Pain Score (VAS): 0 I/O: Intake & Output 03/09/24 03/10/24 03/10/24 23:59 07:59 15:59 Intake Total 800 Balance 800 Post-procedural complaints: none Patient Feedback: Patient satisfied with anesthetic care. Other Findings: Patient vital signs back to baseline. Patient denies nausea and vomiting. Patient's pain under control. Patient OK for discharge.
== END 2024-03-10 09:19 | disposition home or self-care (01) ==
PROVIDERS: PCP Family Medicine; Visit Provider Surgery
PROC: 0DJD8ZZ Inspection of Lower Intestinal Tract, Via Natural or Artificial Opening Endoscopic (ICD-10-PCS; CPT 45378; principal; 2024-03-10 08:00)
DX: K57.32 Diverticulitis of large intestine without perforation or abscess without bleeding (principal); D12.8 Benign neoplasm of rectum; K57.30 Diverticulosis of large intestine without perforation or abscess without bleeding
CPT/HCPCS: 45385

== ENCOUNTER 2024-03-10 07:47 | Outpatient (NON) | payer OTHER, SELFPAY | END 2024-03-10 07:48 | disposition home or self-care (01) | LOC: ANHLAB 03-11 07:49 | PROVIDERS: PCP Family Medicine; Visit Provider Surgery | DX: K57.32 Diverticulitis of large intestine without perforation or abscess without bleeding (principal) | CPT/HCPCS: 88305 ==

== ENCOUNTER 2024-04-16 09:36 | Emergency (ER) | payer OTHER, SELFPAY ==
--- NOTE | ~2024-04-16 | CT_ITS ---
EXAMINATION: CT abdomen pelvis wo con DATE: 04/16/2024 09:55 INDICATION: Lower abdominal pain. TECHNIQUE: Computed tomography (CT) of the abdomen and pelvis was performed without intravenous contr ast. Automated exposure control and iterative reconstruction technique were employed. The dose-length product was 1067.97 mGy-cm. COMPARISON: CT abdomen and pelvis 12/20/2023 FINDINGS: The visualized portions of the lung bases are clear without pneumonia or pleural effusion. The heart size is normal. No pericardial effusion. The liver, gallbladder, spleen, pancreas, adrenal glands, are normal. There is a 3 mm stone in right kidney. There is a 2.4 cm cyst in left kidney. The re is diverticulosis of the colon without evidence of diverticulitis. There are no dilated loops of b owel. The appendix is normal. There are no pathologically enlarged lymph nodes. There is no free intr aperitoneal fluid. There is mild thoracic and lumbar spondylosis. IMPRESSION: 1. No etiology for the patient's symptoms. Reviewed, dictated and finalized at location A.
--- NOTE | 2024-04-16 09:37 | ED.ABDPAIN ---
HPI - Abdominal Pain General Chief Complaint: Abdominal Pain Stated Complaint: diverticulitis flare Time Seen by Provider: 04/16/24 09:37 History of Present Illness HPI narrative: 43-year-old female with history of diverticulitis presents to the emergency room for evaluation of lower abdominal pain for several days. Patient states that [place] was [place], then began experiencing vomiting and diarrhea. States that she developed associated abdominal pain after the vomiting diarrhea. Patient states the vomiting and diarrhea resolved couple of days ago. Has continued to experience lower abdominal pain, mostly on the right. Denies any fevers. Related Data Home Medications Medication Instructions Recorded Confirmed Vitamin D3 1 tab-cap PO DIRECTED 02/21/24 03/12/24 vitamin B complex 1 tablet PO DAILY 02/21/24 03/12/24 vitamin E 1 tab-cap PO DIRECTED 02/21/24 03/12/24 Allergies Allergy/AdvReac Type Severity Reaction Status Date / Time metronidazole AdvReac Severe Nausea and Verified 03/10/24 06:41 Vomiting Review of Systems Review of Systems: ROS unremarkable except for stated in HPI PMFSH Past Medical History Medical History Anxiety BMI 38.0-38.9,adult BMI 39.0-39.9,adult Chronic low back pain with right-sided sciatica Diverticulitis large intestine (01/16/23) Acute diverticulitis distal descending colon 03/28/2023. Edema, peripheral Elevated liver enzymes (03/09/22) ALT elevated at 43 with AST 24 on 03/09/2022. Liver enzymes normal with AST 20 and ALT 26 on 01/09/2024. Encounter for wellness examination in adult Family history of premature coronary artery disease Fever Folliculitis Gastritis (~01/23/23) gastritis noted on CT in the ER 01/23/2023. Kidney stones kidney stone removal Mixed hyperlipidemia (~03/09/22) cholesterol 193, triglycerides 113, HDL 41, LDL 131 on 03/09/2022. Morbid obesity with BMI of 40.0-44.9, adult Motion sickness Murmur (~2020) Obesity (BMI 30-39.9) Polyp of colon 3 rectal Hyperplastic polyps on colonoscopy 03/10/2024 with recheck in 7-10 years. Screening mammogram, encounter for Normal mammogram 08/10/2023. Skin tag Surgical History Surgical History H/O LEEP H/O: hysterectomy (~2018) 08/25/19 RA MELISSA w/ rt ovarian cystectomy--menometrorrhagia, dysmenorrhea, urinary incontinence, rt ovarian cyst History of hysteroscopy 09/09/15 hscope d&c History of tonsillectomy Hx of ovarian cystectomy 09/09/15 Family History Family History Grandparent Diabetes mellitus, Onset Age: 81 maternal grandmother Cerebrovascular accident, Onset Age: 81 Family history of malignant neoplasm of breast in first degree relative Breast cancer maternal grandmother Mother Patient's mother is in good health Father Family history of cardiovascular disease, Onset Age: 58 Hypertension Diabetes mellitus Social History Social History Smoking status: Former smoker Second hand tobacco smoke exposure: No Alcohol intake: current Alcohol use details: couple per month Substance use: current Substance use type: marijuana Other substance usage details: 2-3 times a week Lack of Transportation: No Lack of Food: Never True Current Housing: I Have Housing Concerned About Future Housing: No Difficulty Paying Gas/Electric Bills: No Difficulty Paying for Meds: No Currently Unemployed: No Education: Bachelor's Degree Difficulty w/ Childcare or Family Care: No Living arrangements: with family Additional living arrangements comments: -- Occupation/Education: occupation Additional occupation/education comments: IT Gender identity (if verbalized by the patient): Female Sexual Orientation (if Ve
[2024-04-16 09:38] VITALS: BP 161/82; PULSE 84; RESP 16; TEMP 37; O2SAT 100
[2024-04-16] MEDS: ONDANSETRON INJ 4 MG/2 ML VIAL IV PUSH (10:00)
[2024-04-16] MEDS: SODIUM CHLORIDE 0.9% IV 1,000 ML 999 ML IV CONT (10:00)
[2024-04-16] MEDS: MORPHINE SULFATE (*CRX) 4 MG/ML INJ IV PUSH (10:00)
[2024-04-16 10:01] LABS: Basophils Percent Auto 0.2 % (0.2-1.2); Eosinophils Absolute Auto 0.2 K/mm3 (0-0.3); Eosinophils Percent Auto 2.7 % (0-4.4); Hemoglobin 15.1 g/dL (12.0-15.0); Immature Granulocyte Absolute 0.02 K/mm3 (0.00-0.031); Immature Granulocyte Percent A 0.2 % (0-0.5); Lymphocytes Absolute Auto 3.61 K/mm3 (0.9-3.2); Lymphocytes Percent Auto 41.9 % (18.3-44.2); Mean Corpuscular HGB Conc 33.6 g/dl (32-36); Mean Corpuscular Volume 89.5 fl (80-100); Mean Platelet Volume 10.5 fl (7.4-10.4); Monocytes Absolute Auto 0.7 K/mm3 (0.1-0.6); Monocytes Percent Auto 8.4 % (2.6-8.5); Neutrophils Percent Auto 46.6 % (45.5-73.1); Platelet Count Result 337 k/mm3 (150-375); Red Blood Count 5.03 M/mm3 (4.2-5.4); Red Cell Distribution Width 13.1 % (11.5-14.5); White Blood Count 8.6 K/mm3 (4.5-10.0)
[2024-04-16 10:02] LABS: Appearance Urine Clear (Clear); Bilirubin Urine Negative (Negative); Blood Urine Negative (Negative); Color Urine Yellow (Yellow); Glucose Urine UA Negative (Negative); Ketones Urine Negative (Negative); Leukocyte Esterase Ur Negative LEU/UL (Negative); Nitrate Urine Negative (Negative); Protein Urine Negative (Negative); Specific Grav Ur 1.018 (1.001-1.035)
[2024-04-16 10:06] LABS: Alanine Aminotransferase 98 U/L (6-35); Albumin Level 4.4 g/dL (3.5-5.1); Alkaline Phosphatase 49 U/L (38-126); Anion Gap 5 mmol/L (4-12); Aspartate Amino Transferase 46 U/L (14-36); Bilirubin,Total 0.8 mg/dL (0.2-1.3); Blood Urea Nitrogen 9 mg/dL (7-17); Calcium 9.1 mg/dL (8.4-10.2); Carbon Dioxide 28 mmol/L (22-30); Chloride 107 mmol/L (98-107); Estimated CRCL calculation 98 ml/min; Estimated Glomerular Filt Rate > 60; Glucose 94 mg/dL (65-110); Lipase 59 U/L (23-300); Potassium 3.7 mmol/L (3.4-5.0); Sodium 140 mmol/L (137-145)
[2024-04-16 10:07] LABS: Add Urine Microscopic? NO
[2024-04-16] MEDS: DICYCLOMINE HCL INJ 20 MG/2 ML VIAL IM (10:25)
[2024-04-16 10:53] VITALS: BP 120/68; PULSE 78; RESP 16; TEMP 36.8; O2SAT 100
== END 2024-04-16 10:54 | disposition home or self-care (01) ==
PROVIDERS: Emergency Provider Nurse Practitioner Family; PCP Family Medicine
DX: K52.9 Noninfective gastroenteritis and colitis, unspecified (principal); E78.5 Hyperlipidemia, unspecified; E66.9 Obesity, unspecified; Z68.36 Body mass index [BMI] 36.0-36.9, adult; Z87.891 Personal history of nicotine dependence
CPT/HCPCS: 36415; 74176; 80053; 81003; 83690; 85025; 96361; 96372; 96374; 96375; 99284; J0500; J2270; J2405; J7030

== ENCOUNTER → 2025-02-19 14:38 | Outpatient (CLI) | payer OTHER, SELFPAY ==
--- NOTE | ~2025-02-19 | XR_ITS ---
AP view of the pelvis and AP and lateral views of the right hip Clinical history: Pain Findings: No acute fracture or dislocation is seen. Osseous alignment is anatomic. Bilateral hip and SI joint spaces are preserved. Soft tissues are unremarkable. Impression: No significant abnormality is seen. Reviewed, dictated and finalized at location . Impression: No significant abnormality is seen.
--- OUTSIDE RECORDS SUMMARY | 2025-02-19 15:10 | XMS_ITS | CONTINUITY OF CARE DOCUMENT ---
Author Name jenny alvarado Address Unknown Organization [facility] Address [address] [place] [address] [address] [place] [address] Phone [phone] Care Team Providers Care Bullet Swaging Machine Operator Name Role Phone Dori Cote MD Unavailable [phone] Dori Cote MD Unavailable [phone] INSURANCE PROVIDERS Payer name Policy type / Coverage type [place] red green party ID [place] [employer] [facility] [id number]
--- OUTSIDE RECORDS SUMMARY | 2025-02-19 15:10 | XMS_ITS | Continuity of Care Document ---
Author Organization [facility] Address [address] [place] [address] Phone Care Team Providers Care Product Safety Specialist Name Role Phone Tiburcio Duran Unavailable Unavailable Procedures Procedure Date Eye Exam Established Pt Eye Exam, New Patient Advance Directives Directive Yes / No Effective Date File Name No Information Encounters Encounter Description Practice Location Reason(s) For Visit Diagnoses Date Provider Providers Copied on Encounter [facility], [address] [place] [address] [address], [place], [place], [id number], tel:[phone] [facility] [place] No Information Apr-1 1-200 7 Renee Dey. [facility] , [address], [place], [place], [facility], . tel:[phone] [facility], [address] [place] [address] [address], [place], [place], [id number], tel:[phone] SEC [facility] No Information Sebas-0 8-200 7 Renee Dey. [facility] [address], [address], [place], [place], [facility], [place]. tel:[phone] Family History Family Member Type Diagnosis Age [...]
== END ==
LOC: EXPTRAD 14:41
PROVIDERS: PCP Family Medicine; Visit Provider Family Medicine
DX: M25.551 Pain in right hip (principal); G89.29 Other chronic pain
CPT/HCPCS: 73502

== ENCOUNTER 2025-03-03 07:40 | Emergency (ER) | payer OTHER, SELFPAY ==
--- NOTE | ~2025-03-03 | CT_ITS ---
Non-contrast Head CT History: Headache Technique: Axial non-contrast imaging of the brain was performed. Dose reduction technique was used on this scan by utilizing automated exposure control and iterative reconstruction technique. The dose -length product (DLP) was 605.33 mGy-cm. Findings: There is no evidence of intracranial hemorrhage, mass lesion, or acute infarct. Brain par enchyma appears normal. The ventricles and subarachnoid spaces are normal in size. The calvarium ap pears normal. The visualized paranasal sinuses and mastoid air cells are clear. Impression: No significant abnormality seen. Reviewed, dictated and finalized at location . Impression: No significant abnormality seen.
--- NOTE | ~2025-03-03 | XR_ITS ---
EXAMINATION: XR chest 2V 03/03/2025 08:28 INDICATION: Dizziness PROCEDURE: 2 view chest COMPARISON: No prior studies for comparison. FINDINGS: The lungs are clear. The cardiomediastinal silhouette is within normal limits. There are no pleural effusions. There is no pneumothorax suspected. IMPRESSION: 1: NO ACUTE CARDIOPULMONARY DISEASE. Reviewed, dictated and finalized at location A.
[2025-03-03 07:41] VITALS: BP 168/107; PULSE 92; RESP 16; TEMP 36.6; O2SAT 100
--- OUTSIDE RECORDS SUMMARY | 2025-03-03 07:43 | XMS_ITS | CONTINUITY OF CARE DOCUMENT ---
Author Name jenny alvarado Address Unknown Organization [facility] Address [address] [place] [address] [address] [place] [address] Phone [phone] Care Team Providers Care Rat Farmer Name Role Phone Dori Cote MD Unavailable [phone] Dori Cote MD Unavailable [phone] INSURANCE PROVIDERS Payer name Policy type / Coverage type [place] red democrat ID [employer] [employer] [facility] Commercial insurance co [facility] [id number]
--- OUTSIDE RECORDS SUMMARY | 2025-03-03 07:43 | XMS_ITS | Continuity of Care Document ---
Author Organization [facility] Address [address] [facility] [place] [address] Phone Care Team Providers Care High Lift Operator Name Role Phone Tiburcio Duran Unavailable Unavailable Procedures Procedure Date Eye Exam Established Pt Eye Exam, New Patient Advance Directives Directive Yes / No Effective Date File Name No Information Encounters Encounter Description Practice Location Reason(s) For Visit Diagnoses Date Provider Providers Copied on Encounter [facility], [address] [place] [address] [address], [place], [place], [id number], tel:[phone] [facility] [place] No Information Apr-1 1-200 7 Renee Dey. [facility] , [address], [place], [place], [facility] [place], . tel:[phone] [facility], [address] [place] [address] [address], [place], [place], [id number], tel:[phone] SEC [facility] No Information Sebas-0 8-200 7 Renee Dey. [facility] [address], [address], [place], [place], [facility] [place], [place]. tel:[phone] Family History Family Member Type Diagnosis Age At Onset No Information Payers Payer name Insurance type Covered alliance party ID Authoriza tion(s) No Information Social [...]
--- NOTE | 2025-03-03 07:47 | ECG_ITS ---
Test Date: 2025-03-03 07:53:29 Measurements Intervals [place] Rate: 83 P: 55 ID: [id number] QRS: 3 QRSD: 93 T: 14 QT: 360 QTc: 424 Interpretive Statements SINUS RHYTHM WITH SHORT ID INTERVAL POSSIBLE LEFT ATRIAL ENLARGEMENT CONSIDER INFERIOR INFARCT, AGE INDETERMINATE BASELINE ARTIFACT- I, II, III ABNORMAL ECG No previous ECG available for comparison Electronically Signed On 03-03-2025 08:12:49 CDT by Manuel Christensen D.O.
[2025-03-03 08:01] LABS: Basophils Percent Auto 0.4 % (0.2-1.2); Eosinophils Absolute Auto 0.1 K/mm3 (0-0.3); Eosinophils Percent Auto 1.3 % (0-4.4); Hematocrit 46.9 % (37.0-47.0); Hemoglobin 15.6 g/dL (12.0-15.0); Immature Granulocyte Absolute 0.03 K/mm3 (0.00-0.031); Immature Granulocyte Percent A 0.3 % (0-0.5); Lymphocytes Absolute Auto 2.98 K/mm3 (0.9-3.2); Lymphocytes Percent Auto 27.6 % (18.3-44.2); Mean Corpuscular HGB Conc 33.3 g/dl (32-36); Mean Corpuscular Hemoglobin 29.9 pg (26-34); Mean Platelet Volume 9.8 fl (7.4-10.4); Monocytes Absolute Auto 0.6 K/mm3 (0.1-0.6); Monocytes Percent Auto 5.4 % (2.6-8.5); Platelet Count Result 393 k/mm3 (150-375); Red Blood Count 5.21 M/mm3 (4.2-5.4); Red Cell Distribution Width 12.9 % (11.5-14.5); White Blood Count 10.8 K/mm3 (4.5-10.0)
[2025-03-03 08:13] LABS: Alanine Aminotransferase 42 U/L (6-35); Albumin Level 4.7 g/dL (3.5-5.1); Alkaline Phosphatase 61 U/L (38-126); Anion Gap 10 mmol/L (4-12); Aspartate Amino Transferase 24 U/L (14-36); Bilirubin,Total 0.6 mg/dL (0.2-1.3); Blood Urea Nitrogen 9 mg/dL (7-17); Carbon Dioxide 26 mmol/L (22-30); Chloride 104 mmol/L (98-107); Estimated CRCL calculation 95 ml/min; Estimated Glomerular Filt Rate > 60; Glucose 121 mg/dL (65-110); Potassium 3.7 mmol/L (3.4-5.0); Sodium 140 mmol/L (137-145)
--- OUTSIDE RECORDS SUMMARY | 2025-03-03 08:25 | XMS_ITS | CONTINUITY OF CARE DOCUMENT ---
Author Name jenny alvarado Address Unknown Organization [facility] Address [address] [place] [address] [address] [place] [address] Phone [phone] Care Team Providers Care Shirring Tender Name Role Phone Dori Cote MD Unavailable [phone] Dori Cote MD Unavailable [phone] INSURANCE PROVIDERS Payer name Policy type / Coverage type [place] red republican ID [place] [email or web address] [facility] Commercial [facility] co [facility] [id number]
--- OUTSIDE RECORDS SUMMARY | 2025-03-03 08:25 | XMS_ITS | Continuity of Care Document ---
Author Organization [facility] Address [address] [facility] [address] [place] [address] Phone Care Team Providers Care Team Assistant Name Role Phone Tiburcio Duran Unavailable Unavailable Procedures Procedure Date Eye Exam Established Pt Eye Exam, New Patient Advance Directives Directive Yes / No Effective Date File Name No Information Encounters Encounter Description Practice Location Reason(s) For Visit Diagnoses Date Provider Providers Copied on Encounter [facility], [address] [place] [address] [address], [place], [place], [id number], tel:[phone] [facility] [place] No Information Apr-1 1-200 7 Renee Dey. [facility] , [address], [place], [place], [facility], . tel:[phone] [facility], [address] [place] [address] [address], [place], [place], [id number], tel:[phone] SEC [facility] [place] No Information Sebas-0 8-200 7 Renee Dey. [facility] [address], [address], [place], [place], [facility], [place]. tel:[phone] Family History Family Member Type Diagnosis Age At Onset No Information Payers Payer name Insurance type Covered democrat ID Authoriza tion(s) No Information Social History [...]
[2025-03-03] MEDS: ONDANSETRON INJ 4 MG/2 ML VIAL IV PUSH (08:29)
[2025-03-03] MEDS: PROCHLORPERAZINE EDISYLATE 10 MG/2 ML VIAL IV PUSH (08:29)
[2025-03-03] MEDS: diphenhydrAMINE HCl INJ 50 MG/ML VIAL 25 MG IV PUSH (08:30)
[2025-03-03 08:39] VITALS: BP 147/80; PULSE 77; RESP 18; O2SAT 99
--- NOTE | 2025-03-03 09:17 | ED_ITS ---
HPI - General Adult General Chief complaint: Dizziness Stated complaint: dizzy, nausea Time Seen by Provider: 03/03/25 08:01 History of Present Illness HPI narrative: This is a 44-year-old female presenting ED with chief complaint dizziness. Patient says she woke up this morning with a feeling of disequilibrium. She has nausea and vomiting. She says her arms and legs feel weak. She has a throbbing headache in the frontal region. She says she has a history of migraines/headaches and has been having them this week. She denies thunderclap onset, trauma visual changes, loss of conscious neurologic deficits altered mental status fevers or neck pain. No chest pain or difficulty breathing or abdominal pain. Related Data Allergies Allergy/AdvReac Type Severity Reaction Status Date / Time metronidazole AdvReac Severe Nausea and Verified 03/03/25 07:47 Vomiting PMFSH Past Medical History Medical History Chronic right hip pain (~12/2024) Mixed hyperlipidemia (~03/09/22) cholesterol 193, triglycerides 113, HDL 41, LDL 131 on 03/09/2022. Murmur (~2020) Polyp of colon 3 rectal Hyperplastic polyps on colonoscopy 03/10/2024 with recheck in 7- 10 years. BMI 38.0-38.9,adult Motion sickness Screening mammogram, encounter for Normal mammogram 08/10/2023. BMI 39.0-39.9,adult Obesity (BMI 30-39.9) Gastritis (~01/23/23) gastritis noted on CT in the ER 01/23/2023. Diverticulitis large intestine (01/16/23) Acute diverticulitis distal descending colon 03/28/2023. Chronic low back pain with right-sided sciatica Folliculitis Skin tag Encounter for wellness examination in adult Elevated liver enzymes (03/09/22) ALT elevated at 43 with AST 24 on 03/09/2022. Liver enzymes normal with AST 20 and ALT 26 on 01/09/2024. Morbid obesity with BMI of 40.0-44.9, adult Kidney stones kidney stone removal Anxiety Family history of premature coronary artery disease Edema, peripheral Fever Surgical History Surgical History H/O LEEP Hx of ovarian cystectomy 09/09/15 History of hysteroscopy 09/09/15 hscope d&c History of tonsillectomy H/O: hysterectomy (~2018) 08/25/19 RA TORRES w/ rt ovarian cystectomy--menometrorrhagia, dysmenorrhea, urinary incontinence, rt ovarian cyst Family History Family History Grandparent Diabetes mellitus, Onset Age: 81 maternal grandmother Cerebrovascular accident, Onset Age: 81 Family history of malignant neoplasm of breast in first degree relative Breast cancer maternal grandmother Mother Patient's mother is in good health Father Family history of cardiovascular disease, Onset Age: 58 Hypertension Diabetes mellitus Social History Social History Smoking status: Former smoker Second hand tobacco smoke exposure: No Alcohol intake: current Alcohol use details: couple per month Substance use: current Substance use type: marijuana Other substance usage details: 2-3 times a week Do You Feel Safe in your Home?: Yes Lack of Transportation: No Lack of Food: Never True Current Housing: I Have Housing Concerned About Future Housing: No Difficulty Paying Gas/Electric Bills: No Difficulty Paying for Meds: No Currently Unemployed: No Education: Bachelor's Degree Difficulty w/ Childcare or Family Care: No Living arrangements: with family Additional living arrangements comments: Occupation/Education: occupation Additional occupation/education comments: IT Gender identity (if verbalized by the patient): Female Sexual Orientation (if Verbalized by the Patient): Straight or Heterosexual Exam 2 Narrative: APPEARANCE: No apparent distress. Head: atraumatic. EYES: EOMI, NOSE: Atraumatic NECK: Trachea midline RESPIRATORY: No increased rate of breathing CTAB CARDIOVASCULAR: RRR, no peripheral edema ABDOMINAL: Non-distended soft nontender MUSCULOSKELETAl: No obvious deformities NEURO: Alert. Cranial nerves 2-12 grossly intact. Sensation light touch, motor function cerebellar function intact for 4 extremities. Gait exam was normal. SKIN:: Warm, dry. Normal color PSYCHIATRIC: Normal affect Course Vital Signs Vital signs: Vital Signs Temperature 97.8 F 03/03/25 07:41 Pulse Rate 92 03/03/25 07:41 Respiratory Rate 16 03/03/25 07:41 Blood Pressure 168/107 H 03/03/25 07:41 Pulse Oximetry 100 03/03/25 07:41 Oxygen Delivery Room Air 03/03/25 07:41 Temperature 97.8 F 03/03/25 07:41 Pulse Rate 76 03/03/25 09:37 Respiratory Rate 18 03/03/25 08:39 Blood Pressure 171/101 H 03/03/25 09:37 Pulse Oximetry 99 03/03/25 08:39 Oxygen Delivery Room Air 03/03/25 07:41 Medical Decision Making MDM Narrative Medical decision making narrative: -Course: 44-year-old female presenting with headache, nausea/vomiting. No concerning findings on history or physical. Neurologic exam was normal. CT brain was negative. She was treated with a migraine cocktail with complete resolution of her symptoms. She is now requesting discharge. Discussed return precautions. Patient discharged with primary care follow-up. -DDX includes but is not limited to: Migraine, viral syndrome, intracranial hemorrhage -Co-morbidities complicating care: Migraines Vital Signs Vital Signs: Vital Signs Temperature 97.8 F 03/03/25 07:41 Pulse Rate 92 03/03/25 07:41 Respiratory Rate 16 03/03/25 07:41 Blood Pressure 168/107 H 03/03/25 07:41 Pulse Oximetry 100 03/03/25 07:41 Oxygen Delivery Room Air 03/03/25 07:41 Temperature 97.8 F 03/03/25 07:41 Pulse Rate 76 03/03/25 09:37 Respiratory Rate 18 03/03/25 08:39 Blood Pressure 171/101 H 03/03/25 09:37 Pulse Oximetry 99 03/03/25 08:39 Oxygen Delivery Room Air 03/03/25 07:41 Lab Data 03/03/25 07:55 03/03/25 07:55 Labs: Lab Results 03/03/25 Range/Units 07:55 WBC 10.8 H (4.5-10.0) K/mm3 RBC 5.21 (4.2-5.4) M/mm3 Hgb 15.6 H (12.0-15.0) g/dL Hct 46.9 (37.0-47.0) % MCV 90.0 (80-100) fl MCH 29.9 (26-34) pg MCHC 33.3 (32-36) g/dl RDW 12.9 (11.5-14.5) % Plt Count 393 H (150-375) k/mm3 MPV 9.8 (7.4-10.4) fl Immature Gran % (Auto) 0.3 (0-0.5) % Neut % (Auto) 65.0 (45.5-73.1) % Lymph % (Auto) 27.6 (18.3-44.2) % [place] % (Auto) 5.4 (2.6-8.5) % Eos % (Auto) 1.3 (0-4.4) % Baso % (Auto) 0.4 (0.2-1.2) % Lymph # (Auto) 2.98 (0.9-3.2) K/mm3 [place] # (Auto) 0.6 (0.1-0.6) K/mm3 Eos # (Auto) 0.1 (0-0.3) K/mm3 Baso # (Auto) 0.0 (0.0-0.1) K/mm3 Abs Immat Gran (auto) 0.03 (0.00-0.031) K/mm3 Absolute Neuts (auto) 7.0 H (1.3-6.7) K/mm3 Absolute Nucleated RBC 0.000 (0.0-0.012) K/mm3 Nucleated RBC % 0.0 (0.0-0.2) % Sodium 140 (137-145) mmol/L Potassium 3.7 (3.4-5.0) mmol/L Chloride 104 (98-107) mmol/L Carbon Dioxide 26 (22-30) mmol/L Anion Gap 10 (4-12) mmol/L BUN 9 (7-17) mg/dL Creatinine 0.74 (0.7-1.0) mg/dL Estim Creat Clear Calc 95 ml/min Estimated GFR > 60 (59 - ) Glucose 121 H (65-110) mg/dL Calcium 9.0 (8.4-10.2) mg/dL Total Bilirubin 0.6 (0.2-1.3) mg/dL AST 24 (14-36) U/L ALT 42 H (6-35) U/L Alkaline Phosphatase 61 (38-126) U/L Total Protein 8.0 (6.3-8.2) g/dL Albumin 4.7 (3.5-5.1) g/dL Discharge Plan Discharge Clinical Impression: Migraine Patient Disposition: Home Condition: Stable Instructions: Antibiotic Form, Migraine Headache (ED) Additional Instructions: Please follow-up with your primary care physician for further management. If you develop severe headaches, loss of consciousness, confusion or any new or worsening symptoms please return to the emergency department. He can use Motrin Tylenol as needed for headaches. Patient Language: Latvian Prescriptions: No Action meloxicam 15 mg tablet 15 mg PO DAILY PRN (Reason: pain) Qty: 30 11RF alprazolam [Xanax] 0.25 mg tablet 0.25 mg PO TID PRN (Reason: anxiety) Qty: 90 5RF Follow-up/Referrals: Kevin Robledo MD [Primary Care Provider] -
[2025-03-03 09:34] VITALS: BP 136/82; PULSE 68
[2025-03-03 09:35] VITALS: BP 155/91; PULSE 67
[2025-03-03 09:37] VITALS: BP 171/101; PULSE 76
--- NOTE | 2025-03-03 10:22 | PC.NURSE ---
patient ambulatory to bathroom by self with steady gait and no complaints of dizziness.
--- NOTE | 2025-03-03 10:26 | PC.NURSE ---
Ambulatory to bathroom with steady gait. Tolerated well.
== END 2025-03-03 10:50 | disposition home or self-care (01) ==
PROVIDERS: Emergency Provider Emergency Medicine; PCP Family Medicine
DX: G43.909 Migraine, unspecified, not intractable, without status migrainosus (principal); G89.29 Other chronic pain; E78.5 Hyperlipidemia, unspecified; Z87.442 Personal history of urinary calculi; F41.9 Anxiety disorder, unspecified
CPT/HCPCS: 36415; 70450; 71046; 80053; 85025; 93005; 96374; 96375; 99284; J0780; J1200; J2405

== ENCOUNTER 2025-07-07 10:13 | Emergency (ER) | payer OTHER, SELFPAY ==
--- OUTSIDE RECORDS SUMMARY | 2007-04-22 03:58 | XMS_ITS | Continuity of Care Document ---
Author Organization [facility] Address [address] [place] [address] Phone Care Team Providers Care Procurement Cost Coordinator Name Role Phone Tiburcio Duran Unavailable Unavailable Procedures Procedure Date Eye Exam Established Pt Eye Exam, New Patient Advance Directives Directive Yes / No Effective Date File Name No Information Encounters Encounter Description Practice Location Reason(s) For Visit Diagnoses Date Provider Providers Copied on Encounter [facility], [address] [place] [address] [address], [place], [place], [id number], tel:[phone] [facility] [place] No Information Apr-1 1-200 7 Renee Dey. [facility] , [address], [place], [place], [facility] [place][note 2], . tel:[phone] [facility], [address] [place] [address] [address], [place], [place], [id number], tel:[phone] SEC [facility] No Information Sebas-0 8-200 7 Renee Dey. [facility] [address], [address], [place], [place], [facility] [place]note 2[place]. tel:[phone] Family History Family Member Type Diagnosis Age At Onset No Information Payers Payer name Insurance type Covered green party ID Authoriza tion(s) No Information Social History Type Description Quantity Date Captured Comments Sex Female Smoking Status No Information Chief Complaint And Reason For Visit No Information Reason For Referral Reason For Referral No Information History Of Present Illness Encounter Date Complaint History Of Prese nt Illness No Information Functional Status Date Functional Assessmen t No Information Instructions Date Instruction Additional Infor mation No Information Assessments Type Assessment Date No Information Patient Care Teams Name Effective Dates (start - stop) Status Members No Information
[2025-07-07] VITALS (12 sets, daily range): BP systolic 116–164; BP diastolic 68–132; PULSE 62–82; RESP 12–22; TEMP 36.3; O2SAT 95–99
--- NOTE | ~2025-07-07 | XR_ITS ---
EXAMINATION: XR chest 2V, 07/07/2025 12:25 CDT HISTORY: left arm discomfort COMPARISON: No comparisons available. Technique: 2 views obtained. Findings: The lungs are clear, no effusion. No pneumothorax. Heart is normal size. Mediastinal and hilar contours are within normal limits. Bony thorax no acute abnormality. Impression: No acute cardiopulmonary abnormality. Reviewed, dictated and finalized at location A. Impression: No acute cardiopulmonary abnormality.
--- NOTE | 2025-07-07 11:06 | ECG_ITS ---
Test Date: 2025-07-07 11:50:59 Measurements Intervals [place] Rate: 65 P: 60 [place]: 148 QRS: 3 QRSD: 92 T: -4 QT: 402 QTc: 418 Interpretive Statements SINUS RHYTHM POSSIBLE LEFT ATRIAL ENLARGEMENT BORDERLINE ST-T WAVE ABNORMALITY- INFERIOR LEADS BASELINE ARTIFACT- I, II, AVR, AVL, AVF BORDERLINE ECG Compared to ECG 03/03/2025 07:53:29 NO SIGNIFICANT CHANGE Electronically Signed On 07-07-2025 12:14:08 CDT by Manuel Christensen D.O.
[2025-07-07 11:17] LABS: Hematocrit 44.5 % (37.0-47.0); Hemoglobin 14.6 g/dL (12.0-15.0); Immature Granulocyte Percent A 0.3 % (0-0.5); Lymphocytes Absolute Auto 3.08 K/mm3 (0.9-3.2); Mean Corpuscular HGB Conc 32.8 g/dl (32-36); Mean Corpuscular Hemoglobin 29.9 pg (26-34); Mean Corpuscular Volume 91.2 fl (80-100); Nucleated Red Blood Cells Absolute Auto 0.000 K/mm3 (0.0-0.012); Nucleated Red Blood Cells Perc 0.0 % (0.0-0.2); Platelet Count Result 322 k/mm3 (150-375); Red Blood Count 4.88 M/mm3 (4.2-5.4); White Blood Count 10.3 K/mm3 (4.5-10.0)
[2025-07-07 11:33] LABS: Alanine Aminotransferase 25 U/L (6-35); Albumin Level 4.4 g/dL (3.5-5.1); Alkaline Phosphatase 49 U/L (38-126); Anion Gap 9 mmol/L (4-12); Aspartate Amino Transferase 27 U/L (14-36); Bilirubin,Total 0.5 mg/dL (0.2-1.3); Blood Urea Nitrogen 12 mg/dL (7-17); Calcium 9.2 mg/dL (8.4-10.2); Carbon Dioxide 26 mmol/L (22-30); Chloride 102 mmol/L (98-107); Estimated CRCL calculation 105 ml/min; Estimated Glomerular Filt Rate > 60; Glucose 98 mg/dL (65-110); Lipase 62 U/L (23-300); Sodium 137 mmol/L (137-145); Total Protein 7.7 g/dL (6.3-8.2)
[2025-07-07 11:37] LABS: INR 0.9; Partial Thromboplastin Time 31.0 Seconds (22.3-36.8); Prothrombin Time 12.8 Seconds (11.1-14.7)
[2025-07-07 11:40] LABS: Potassium 3.9 mmol/L (3.4-5.0)
[2025-07-07 11:44] LABS: Troponin I < 0.012 ng/mL (0.000-0.034)
[2025-07-07] MEDS: ASPIRIN 81 MG CHEWABLE TABLET 324 MG PO (11:48)
[2025-07-07] MEDS: ACETAMINOPHEN 500 MG TABLET 1000 MG PO (12:05)
--- NOTE | 2025-07-07 12:54 | ED.GENADULT ---
HPI - General Adult General Chief complaint: Recheck/Abnormal Lab/Rx Stated complaint: headache, HTN Time Seen by Provider: 07/07/25 10:30 History of Present Illness HPI narrative: This is a 44-year-old female with history of hypertension who presents to the ED for headache, chest pain. Patient states that she was at work this morning which began to experience chest pain and headache similar to her prior episode of high blood pressure last week that she was admitted for. She states she has since felt better since then. She has been taking her HCTZ and losartan as prescribed. Denies fevers, chills, numbness, tingling. Related Data Allergies Allergy/AdvReac Type Severity Reaction Status Date / Time metronidazole AdvReac Severe Nausea and Verified 07/07/25 11:06 Vomiting Review of Systems Review of Systems: Gen.: Denies fevers or chills Eyes: Denies eye pain or visual change ENT: Denies congestion Respiratory: As per HPI CV: As per HPI GI: Denies abdominal pain nausea, emesis or diarrhea denies burning, urgency, frequency or hematuria Musculoskeletal: Denies back pain or muscle pain Neuro: Denies numbness, tingling, weakness or focal weakness Skin: Denies rash Except as documented, all other systems reviewed and negative [facility] Past Medical History Medical History Chronic right hip pain (~12/2024) Mixed hyperlipidemia (~03/09/22) cholesterol 193, triglycerides 113, HDL 41, LDL 131 on 03/09/2022. Murmur (~2020) Polyp of colon 3 rectal Hyperplastic polyps on colonoscopy 03/10/2024 with recheck in 7-10 years. BMI 38.0-38.9,adult Motion sickness Screening mammogram, encounter for Normal mammogram 08/10/2023. BMI 39.0-39.9,adult Obesity (BMI 30-39.9) Gastritis (~01/23/23) gastritis noted on CT in the ER 01/23/2023. Diverticulitis large intestine (01/16/23) Acute diverticulitis distal descending colon 03/28/2023. Chronic low back pain with right-sided sciatica Folliculitis Skin tag Encounter for wellness examination in adult Elevated liver enzymes (03/09/22) ALT elevated at 43 with AST 24 on 03/09/2022. Liver enzymes normal with AST 20 and ALT 26 on 01/09/2024. Morbid obesity with BMI of 40.0-44.9, adult Kidney stones kidney stone removal Anxiety Family history of premature coronary artery disease Edema, peripheral Fever Surgical History Surgical History H/O LEEP Hx of ovarian cystectomy 09/09/15 History of hysteroscopy 09/09/15 hscope d&c History of tonsillectomy H/O: hysterectomy (~2018) 08/25/19 RA TLH w/ rt ovarian cystectomy--menometrorrhagia, dysmenorrhea, urinary incontinence, rt ovarian cyst Family History Family History Grandparent Diabetes mellitus, Onset Age: 81 maternal grandmother Cerebrovascular accident, Onset Age: 81 Family history of malignant neoplasm of breast in first degree relative Breast cancer maternal grandmother Mother Patient's mother is in good health Father Family history of cardiovascular disease, Onset Age: 58 Hypertension Diabetes mellitus Social History Social History Smoking status: Former smoker Second hand tobacco smoke exposure: No Alcohol intake: current Alcohol use details: couple per month Substance use: current Substance use type: marijuana Other substance usage details: 2-3 times a week Do You Feel Safe in your Home?: Yes Lack of Transportation: No Lack of Food: Never True Current Housing: I Have Housing Concerned About Future Housing: No Difficulty Paying Gas/Electric Bills: No Difficulty Paying for Meds: No Currently Unemployed: No Education: Bachelor's Degree Difficulty w/ Childcare or Family Care: No Living arrangements: with family Additional living arrangements comments: Occupation/Education: occupation Additional occupation/education comments: IT Gender identity (if verbalized by the patient): Female Sexual Orientation (if Verbalized by the Patient): Straight or Heterosexual Exam Narrative: APPEARANCE: No acute distress, nontoxic, resting in bed EYES: EOMI HEENT: Normocephalic, atraumatic, OMM RESPIRATORY: No respiratory distress Clear to auscultation bilaterally with no rhonchi wheezing or rales. CARDIOVASCULAR: Regular rate and rhythm without murmurs rubs or gallops. ABDOMINAL: Soft, nontender, nondistended, no rebound or guarding MUSCULOSKELETAl: Moves all extremities. No clubbing, cyanosis or edema. NEURO: Awake and alert. Following commands, speech normal, no focal deficits. NIHSS 0 SKIN:: Warm, dry. No rashes lesions or abrasions PSYCHIATRIC: Normal affect/mood, Course Vital Signs Vital signs: Vital Signs Temperature 97.4 F L 07/07/25 10:23 Pulse Rate 77 07/07/25 10:23 Respiratory Rate 20 07/07/25 10:23 Blood Pressure 153/93 H 07/07/25 10:23 Pulse Oximetry 98 07/07/25 10:23 Oxygen Delivery Room Air 07/07/25 10:23 Temperature 97.4 F L 07/07/25 10:23 Pulse Rate 68 07/07/25 14:01 Respiratory Rate 19 07/07/25 14:01 Blood Pressure 145/84 H 07/07/25 14:01 Pulse Oximetry 98 07/07/25 14:01 Oxygen Delivery Room Air 07/07/25 10:23 Medical Decision Making MDM Narrative Medical decision making narrative: 44-year-old female who presented to the ED for headache and chest pain with hypertension. On initial evaluation, patient was in no acute distress, afebrile, hemodynamically stable. Her symptoms had resolved by the time I evaluated her. Her blood pressure had improved to 1 40s to 150s/80s to 90s. Cbc and CMP are without significant abnormalities. Troponin negative. Patient recently diagnosed with hypertension and started on new medications. Suspect that she is having some issues with her dosages in fluctuations in her pressures. She is awaiting an appointment with Cardiology and stainless but is requesting additional referral this time to a more regular asic verification engineer. She was given referral to Cardiology. She is advised to continue her symptoms. Patient and family were agreeable to this plan. Given strict return precautions. Differential Diagnosis Differential Diagnosis: Hypertension, electrolyte abnormality, ACS Vital Signs Vital Signs: Vital Signs Temperature 97.4 F L 07/07/25 10:23 Pulse Rate 77 07/07/25 10:23 Respiratory Rate 20 07/07/25 10:23 Blood Pressure 153/93 H 07/07/25 10:23 Pulse Oximetry 98 07/07/25 10:23 Oxygen Delivery Room Air 07/07/25 10:23 Temperature 97.4 F L 07/07/25 10:23 Pulse Rate 68 07/07/25 14:01 Respiratory Rate 19 07/07/25 14:01 Blood Pressure 145/84 H 07/07/25 14:01 Pulse Oximetry 98 07/07/25 14:01 Oxygen Delivery Room Air 07/07/25 10:23 Lab Data 07/07/25 11:09 07/07/25 11:09 Labs: Lab Results 07/07/25 Range/Units 11:09 WBC 10.3 H (4.5-10.0) K/mm3 RBC 4.88 (4.2-5.4) M/mm3 Hgb 14.6 (12.0-15.0) g/dL Hct 44.5 (37.0-47.0) % MCV 91.2 (80-100) fl MCH 29.9 (26-34) pg MCHC 32.8 (32-36) g/dl RDW 13.2 (11.5-14.5) % Plt Count 322 (150-375) k/mm3 MPV 10.1 (7.4-10.4) fl Immature Gran % (Auto) 0.3 (0-0.5) % Neut % (Auto) 62.1 (45.5-73.1) % Lymph % (Auto) 29.9 (18.3-44.2) % [place] % (Auto) 5.9 (2.6-8.5) % Eos % (Auto) 1.4 (0-4.4) % Baso % (Auto) 0.4 (0.2-1.2) % Lymph # (Auto) 3.08 (0.9-3.2) K/mm3 [place] # (Auto) 0.6 (0.1-0.6) K/mm3 Eos # (Auto) 0.1 (0-0.3) K/mm3 Baso # (Auto) 0.0 (0.0-0.1) K/mm3 Abs Immat Gran (auto) 0.03 (0.00-0.031) K/mm3 Absolute Neuts (auto) 6.4 (1.3-6.7) K/mm3 Absolute Nucleated RBC 0.000 (0.0-0.012) K/mm3 Nucleated RBC % 0.0 (0.0-0.2) % PT 12.8 (11.1-14.7) Seconds INR 0.9 APTT 31.0 (22.3-36.8) Seconds Sodium 137 (137-145) mmol/L Potassium 3.9 (3.4-5.0) mmol/L Chloride 102 (98-107) mmol/L Carbon Dioxide 26 (22-30) mmol/L Anion Gap 9 (4-12) mmol/L BUN 12 (7-17) mg/dL Creatinine 0.68 L (0.7-1.0) mg/dL Estim Creat Clear Calc 105 ml/min Estimated GFR > 60 (59 - ) Glucose 98 (65-110) mg/dL Calcium 9.2 (8.4-10.2) mg/dL Total Bilirubin 0.5 (0.2-1.3) mg/dL AST 27 (14-36) U/L ALT 25 (6-35) U/L Alkaline Phosphatase 49 (38-126) U/L Troponin I < 0.012 (0.000-0.034) ng/mL Total Protein 7.7 (6.3-8.2) g/dL Albumin 4.4 (3.5-5.1) g/dL Lipase 62 (23-300) U/L ECG Data EKG #1: Interpretation: Normal sinus rhythm rate of 65, normal axis, normal intervals, nonspecific ST and T-wave changes Discharge Plan Discharge Clinical Impression: Hypertension Patient Disposition: Home Condition: Stable Instructions: Antibiotic Form, Hypertension (ED) Additional Instructions: Continue to follow-up with your PCP as scheduled. You were also given a referral to Dr. Vazquez, cardiology, in the event that the asic verification engineer she referred to regionally does not call back. Return the ED for any new or worsening symptoms. Patient Language: Polish Prescriptions: No Action alprazolam [Xanax] 0.25 mg tablet 0.25 mg PO TID PRN (Reason: anxiety) Qty: 90 5RF estradiol 0.5 mg tablet 0.5 mg PO DAILY Qty: 90 3RF Follow-up/Referrals: Kevin Robledo MD [Primary Care Provider, Family Practice]
== END 2025-07-07 14:18 | disposition home or self-care (01) ==
PROVIDERS: Emergency Provider Student in an Organized Health Care Education/Training Program; PCP Family Medicine
DX: I10 Essential (primary) hypertension (principal); E78.5 Hyperlipidemia, unspecified; Z87.442 Personal history of urinary calculi; F41.9 Anxiety disorder, unspecified
CPT/HCPCS: 36415; 71046; 80053; 83690; 84484; 85025; 85610; 85730; 93005; 99284; A9270